=== PATIENT | male | born 2000 | race Hispanic/Latino ===

== ENCOUNTER 2025-02-21 12:30 | Emergency (ER) | payer OTHER, SELFPAY ==
[2025-02-21] VITALS (12 sets, daily range): BP systolic 114–156; BP diastolic 66–85; PULSE 59–84; RESP 16–23; TEMP 36.5–37; O2SAT 97–100
--- NOTE | ~2025-02-21 | CT_ITS ---
CT brain wo con Ordering provider: Jacky Woods MD History: 24 years Male with . Winn's palsy . Comparison: None. Technique: CT of the head without contrast. Radiation reduction technique utilized.The dose-length pr oduct was 681 mGy-cm. FINDINGS: BRAIN PARENCHYMA AND CSF SPACES: No midline shift, mass effect or hemorrhage. The brain parenchyma a nd CSF spaces are otherwise normal. VISUALIZED PARANASAL SINUSES: Well aerated. MASTOIDS: Well aerated. BONES: The bones appear intact. SOFT TISSUES: Visualized nasopharynx is normal. Superficial soft tissues are normal. IMPRESSION: No acute intracranial findings. Reviewed, dictated and finalized at location A.
[2025-02-21 12:54] LABS: Glucose Point of Care 97 mg/dl (65-105)
--- NOTE | 2025-02-21 12:56 | ED_ITS ---
HPI - General Adult General Chief complaint: Neuro Symptoms/Deficit Stated complaint: R. facial droop, LKW 02/19 1700 Time Seen by Provider: 02/21/25 12:55 Source: patient and family Mode of arrival: ambulatory Limitations: no limitations History of Present Illness HPI narrative: 24 YEARS OLD WHITE MALE CAME TO THE ED BY PRIVATE CAR COMPLAINING OF NUMBNESS OF THE RIGHT FACE, DIFFICULT TO CLOSE RIGHT EYE, FOOD LEAKING OUT OF THE RIGHT SIDE OF THE MOUTH STARTED 1 AND HAVE DAY AGO. ASSOCIATED WITH DIZZINESS, HEADACHE, HE DENIES ANY FEVER, CHILLS, NAUSEA, VOMITING OR HISTORY OF STD. Related Data Allergies Allergy/AdvReac Type Severity Reaction Status Date / Time No Known Allergies Allergy Verified 02/21/25 12:46 Review of Systems 2 Review of Systems: All systems reviewed & are unremarkable except as noted in HPI and below Exam 2 Narrative: GENERAL APPEARANCE: WELL-DEVELOPED, WELL-NOURISHED SKIN: NORMAL COLOR HEAD: NORMOCEPHALIC, NONTRAUMATIC EYES: CLEAR CONJUNCTIVA ENT: OROPHARYNX NORMAL, EARS NORMAL, NOSE NORMAL NECK: SUPPLE, NONTENDER CHEST AND RESPIRATORY: AIRWAY PATENT, NO RESPIRATORY DISTRESS, NO ACCESSORY MUSCLE USE HEART: REGULAR RATE/RHYTHM ABDOMEN: SOFT, NONTENDER, NO ORGANOMEGALY, QUIET BOWEL SOUNDS VASCULAR: NORMAL PERIPHERAL PULSES, NORMAL CAPILLARY REFILL. MUSCULOSKELETAL: NORMAL RANGE OF MOTION, NONTENDER BACK NEUROLOGIC: ALERT AND ORIENTED ?3, RIGHT FACIAL DROOPING, UNABLE TO RAISE RIGHT EYEBROW, UNABLE TO CLOSE RIGHT EYES COMPLETELY COMPARED TO THE LEFT 1, DECREASED SENSATION ON THE RIGHT SIDE OF THE FACE Course Vital Signs Vital signs: Vital Signs Temperature 36.5 C 02/21/25 12:32 Pulse Rate 59 L 02/21/25 12:32 Respiratory Rate 16 02/21/25 12:32 Blood Pressure 149/85 H 02/21/25 12:32 Pulse Oximetry 100 02/21/25 12:32 Oxygen Delivery Room Air 02/21/25 12:32 Temperature 37.0 C 02/21/25 14:22 Pulse Rate 67 02/21/25 14:15 Respiratory Rate 16 02/21/25 14:15 Blood Pressure 114/80 02/21/25 14:01 Pulse Oximetry 99 02/21/25 14:15 Oxygen Delivery Room Air 02/21/25 12:32 Medical Decision Making [facility] Narrative Medical decision making narrative: PATIENT PRESENTS WITH NICHOLSON'S PALSY LIKE SYMPTOMS VITAL SIGNS ARE STABLE PHYSICAL EXAMINATION CONSISTENT WITH RIGHT NICHOLSON'S PALSY DIFFERENTIAL DIAGNOSIS INCLUDE STROKE/TIA, BRAIN STEM GLOMUS, CEREBRAL ANEURYSM, INTRACRANIAL HEMORRHAGE, MENINGIOMA, HYPERTENSION, DIABETES, SARCOIDOSIS BLOOD WORKUP TODAY INCLUDES CBC, CMP, TSH, A1C, SHOWED NO SIGNIFICANT ABNORMALITIES CT HEAD WITHOUT CONTRAST SHOWED NO ACUTE ABNORMALITY DIAGNOSIS NICHOLSON'S PALSY DISCHARGED ON PREDNISONE, FOLLOW-UP WITH NEUROLOGIST. THE PT WAS DISCHARGED TO HOME.THE PT,S CONDITION UPON DISCHARGE WAS FAIR,EDUCATION WAS PROVIDED TO THE PT IN REFERENCE TO THE FINAL IMPRESSION,DISCHARGE STUDY RESULTS,TREATMENT,PROGNOSIS AND NEED FOR FOLLOW UP . Vital Signs Vital Signs: Vital Signs Temperature 36.5 C 02/21/25 12:32 Pulse Rate 59 L 02/21/25 12:32 Respiratory Rate 16 02/21/25 12:32 Blood Pressure 149/85 H 02/21/25 12:32 Pulse Oximetry 100 02/21/25 12:32 Oxygen Delivery Room Air 02/21/25 12:32 Temperature 37.0 C 02/21/25 14:22 Pulse Rate 67 02/21/25 14:15 Respiratory Rate 16 02/21/25 14:15 Blood Pressure 114/80 02/21/25 14:01 Pulse Oximetry 99 02/21/25 14:15 Oxygen Delivery Room Air 02/21/25 12:32 Lab Data 02/21/25 13:06 02/21/25 14:13 Labs: Lab Results 02/21/25 02/21/25 02/21/25 Range/Units 12:42 13:06 13:07 WBC 6.5 (4.5-10.0) K/mm3 RBC 5.69 (4.6-6.20) M/mm3 Hgb 16.8 (14.0-18.0) g/dL Hct 49.6 (42.0-52.0) % MCV 87.2 (80-100) fl MCH 29.5 (26-34) pg MCHC 33.9 (32-36) g/dl RDW 13.4 (11.5-14.5) % Plt Count 200 (150-375) k/mm3 MPV 11.3 H (7.4-10.4) fl Immature Gran % (Auto) 0.3 (0-0.5) % Neut % (Auto) 56.0 (45.5-73.1) % Lymph % (Auto) 33.8 (18.3-44.2) % Keith % (Auto) 7.1 (2.6-8.5) % Eos % (Auto) 2.0 (0-4.4) % Baso % (Auto) 0.8 (0.2-1.2) % Lymph # (Auto) 2.18 (0.9-3.2) K/mm3 Keith # (Auto) 0.5 (0.1-0.6) K/mm3 Eos # (Auto) 0.1 (0-0.3) K/mm3 Baso # (Auto) 0.1 (0.0-0.1) K/mm3 Abs Immat Gran (auto) 0.02 (0.00-0.031) K/mm3 Absolute Neuts (auto) 3.6 (1.3-6.7) K/mm3 Absolute Nucleated RBC 0.000 (0.0-0.012) K/mm3 Nucleated RBC % 0.0 (0.0-0.2) % Sodium (137-145) mmol/L Potassium (3.4-5.0) mmol/L Chloride (98-107) mmol/L Carbon Dioxide (22-30) mmol/L Anion Gap (4-12) mmol/L BUN (9-20) mg/dL Creatinine (0.7-1.3) mg/dL Estim Creat Clear Calc ml/min Estimated GFR (59 - ) Glucose (65-110) mg/dL POC Capillary Glucose 97 (65-105) mg/dl Hemoglobin A1c 5.1 (<5.7) % Calcium (8.4-10.2) mg/dL Total Bilirubin (0.2-1.3) mg/dL AST (17-59) U/L ALT (6-50) U/L Alkaline Phosphatase (38-126) U/L Total Protein (6.3-8.2) g/dL Albumin (3.5-5.1) g/dL TSH (0.465-4.680) uIU/mL Syphilis IgG/IgM Ab Negative (Negative) 02/21/25 Range/Units 14:13 WBC (4.5-10.0) K/mm3 RBC (4.6-6.20) M/mm3 Hgb (14.0-18.0) g/dL Hct (42.0-52.0) % MCV (80-100) fl MCH (26-34) pg MCHC (32-36) g/dl RDW (11.5-14.5) % Plt Count (150-375) k/mm3 MPV (7.4-10.4) fl Immature Gran % (Auto) (0-0.5) % Neut % (Auto) (45.5-73.1) % Lymph % (Auto) (18.3-44.2) % Keith % (Auto) (2.6-8.5) % Eos % (Auto) (0-4.4) % Baso % (Auto) (0.2-1.2) % Lymph # (Auto) (0.9-3.2) K/mm3 Keith # (Auto) (0.1-0.6) K/mm3 Eos # (Auto) (0-0.3) K/mm3 Baso # (Auto) (0.0-0.1) K/mm3 Abs Immat Gran (auto) (0.00-0.031) K/mm3 Absolute Neuts (auto) (1.3-6.7) K/mm3 Absolute Nucleated RBC (0.0-0.012) K/mm3 Nucleated RBC % (0.0-0.2) % Sodium 138 (137-145) mmol/L Potassium 4.2 (3.4-5.0) mmol/L Chloride 105 (98-107) mmol/L Carbon Dioxide 25 (22-30) mmol/L Anion Gap 8 (4-12) mmol/L BUN 10 (9-20) mg/dL Creatinine 0.67 L (0.7-1.3) mg/dL Estim Creat Clear Calc 186 ml/min Estimated GFR > 60 (59 - ) Glucose 92 (65-110) mg/dL POC Capillary Glucose (65-105) mg/dl Hemoglobin A1c (<5.7) % Calcium 9.0 (8.4-10.2) mg/dL Total Bilirubin 0.7 (0.2-1.3) mg/dL AST 61 H (17-59) U/L ALT 125 H (6-50) U/L Alkaline Phosphatase 66 (38-126) U/L Total Protein 8.0 (6.3-8.2) g/dL Albumin 4.6 (3.5-5.1) g/dL TSH 1.510 (0.465-4.680) uIU/mL Syphilis IgG/IgM Ab (Negative) Imaging Data Radiologist's impression: Impressions Head CT 02/21/25 13:43 IMPRESSION: No acute intracranial findings. Critical Care Time Critical Care Time Critical Care Time: No Discharge Plan Discharge Clinical Impression: Nicholson's palsy Patient Disposition: Home Condition: Stable Instructions: Nicholson Palsy (ED) Additional Instructions: RETURN IF SYMPTOMS ARE WORSENING , CALL YOUR FAMILY PHYSICIAN/DR.DR BORDEN FOR APPOINTMENT, TAKE TYLENOL, IBUPROFEN NEEDED FOR ACHES AND PAIN, CONTINUE HOME MEDICATIONS. Patient Language: Sinhala Prescriptions: New prednisone 10 mg tablet 10 mg PO DAILY Qty: 45 0RF Rx Instructions: 6 tablets daily for 5 days then 5 tablets day 6, 4 tablets day 7, 3 tablets day 8, 2 tablets a day 9 and 1 tablet day 10 Follow-up/Referrals: Enrico Borden MD [Physician] - 02/25/25 PHYSICIAN,VALUE ADVISOR [Non-Staff] -
[2025-02-21 13:13] LABS: Basophils Absolute Auto 0.1 K/mm3 (0.0-0.1); Basophils Percent Auto 0.8 % (0.2-1.2); Eosinophils Absolute Auto 0.1 K/mm3 (0-0.3); Hematocrit 49.6 % (42.0-52.0); Hemoglobin 16.8 g/dL (14.0-18.0); Immature Granulocyte Absolute 0.02 K/mm3 (0.00-0.031); Immature Granulocyte Percent A 0.3 % (0-0.5); Lymphocytes Absolute Auto 2.18 K/mm3 (0.9-3.2); Lymphocytes Percent Auto 33.8 % (18.3-44.2); Mean Corpuscular HGB Conc 33.9 g/dl (32-36); Mean Corpuscular Hemoglobin 29.5 pg (26-34); Mean Corpuscular Volume 87.2 fl (80-100); Mean Platelet Volume 11.3 fl (7.4-10.4); Monocytes Absolute Auto 0.5 K/mm3 (0.1-0.6); Monocytes Percent Auto 7.1 % (2.6-8.5); Neutrophils Absolute Auto 3.6 K/mm3 (1.3-6.7); Platelet Count Result 200 k/mm3 (150-375); Red Blood Count 5.69 M/mm3 (4.6-6.20); Red Cell Distribution Width 13.4 % (11.5-14.5); White Blood Count 6.5 K/mm3 (4.5-10.0)
[2025-02-21 13:33] LABS: Hemoglobin A1C 5.1 % (<5.7)
[2025-02-21 13:59] LABS: Syphilis IgG/IgM Antibody Negative (Negative)
[2025-02-21] MEDS: IBUPROFEN 600 MG TABLET PO (14:04)
[2025-02-21 14:33] LABS: Alanine Aminotransferase 125 U/L (6-50); Albumin Level 4.6 g/dL (3.5-5.1); Alkaline Phosphatase 66 U/L (38-126); Anion Gap 8 mmol/L (4-12); Aspartate Amino Transferase 61 U/L (17-59); Bilirubin,Total 0.7 mg/dL (0.2-1.3); Blood Urea Nitrogen 10 mg/dL (9-20); Carbon Dioxide 25 mmol/L (22-30); Chloride 105 mmol/L (98-107); Estimated CRCL calculation 186 ml/min; Estimated Glomerular Filt Rate > 60; Glucose 92 mg/dL (65-110); Potassium 4.2 mmol/L (3.4-5.0); Sodium 138 mmol/L (137-145)
== END 2025-02-21 14:23 | disposition home or self-care (01) ==
PROVIDERS: Emergency Provider Emergency Medicine
DX: G51.0 Bell's palsy (principal)
CPT/HCPCS: 36415; 70450; 80053; 82948; 83036; 84443; 85025; 86593; 99284; A9270